=== PATIENT | female | born 1970 | race Caucasian/White ===

== ENCOUNTER 2018-03-20 08:28 | Emergency (ER) | payer BC ==
[2018-03-20 08:44] VITALS: BP 142/87
--- NOTE | 2018-03-20 10:21 | Emergency Department Report ---
Minor Respiratory - HPI Chief Complaint: Upper Respiratory Infection Stated Complaint: COUGH/PAIN Time Seen by Provider: 03/20/18 09:29 Duration: 2 Days Pain Location: Nose (congestion) Severity: moderate Minor Respiratory: Yes Rhinorrhea, Yes Able to Tolerate Fluids, Yes Cough, Yes Sick Contacts, No Sore Throat, No Ear Pain, No Hemoptysis, No Chest Pain, No Shortness of Breath, No Fever Other History: This is a 47-year-old female who presents with cough and congestion, and nausea for 1 week. Patient states cough and increased over the past 2 days her to call out of work. She has been taken and sinus medication with no improvement of symptoms. She is coughing so much causing nausea without vomiting. Patient denies past medical history. She is requesting doctor note so she was on the work tomorrow. Denies fever, nausea, vomiting, chest pain, wheezing, and body aches. ED Review of Systems ROS: Stated complaint: COUGH/PAIN Other details as noted in HPI Constitutional: denies: chills, fever ENT: congestion. denies: ear pain, throat pain, dental pain, hearing loss, epistaxis Respiratory: denies: cough, shortness of breath, wheezing Cardiovascular: denies: chest pain, palpitations, edema, syncope Gastrointestinal: nausea. denies: abdominal pain, vomiting, diarrhea Neurological: denies: headache, weakness, paresthesias Psychiatric: denies: anxiety, depression ED Past Medical Hx - Past Medical History Previous Medical History?: No - Surgical History Additional Surgical History: C SECTION - Social History Smoking Status: Never Smoker Substance Use Type: None - Medications Home Medications: Home Medications Medication Instructions Recorded Confirmed Last Taken Type ALBUTEROL Inhaler [ProAir HFA 1 puff IH Q4-6H PRN #1 inha 03/20/18 Unknown Rx Inhaler] Azithromycin [Zithromax Z-LONA] 250 mg PO DAILY #6 tablet 03/20/18 Unknown Rx Benzonatate [Tessalon Perles] 100 mg PO Q8HR PRN #20 capsule 03/20/18 Unknown Rx Fluticasone [Flonase] 1 spray NS QDAY #1 bottle 03/20/18 Unknown Rx Minor Respiratory Exam - Exam General: Vital signs noted. No distress. Alert and acting appropriately. HEENT: Yes Moist Mucous Membranes, Yes Rhinorrhea (turbinates mildly congested with clear discharge), No Pharyngeal Erythema, No Pharyngeal Exudates, No Conjuctival Injection, No Frontal Tenderness, No Maxillary Tenderness Ear: Neither TM Bulge, Neither TM Erythema, Neither EAC Pain, Neither EAC Discharge Neck: Yes Supple, No Adenopathy Lungs: Yes Good Air Exchange, Yes Cough, No Wheezes, No Ronchi, No Stridor, No Labored Respirations, No Retractions, No Use of Accessory Muscles, No Other Abnormal Lung Sounds Heart: Yes Regular, No Murmur Abdomen: Yes Normal Bowel Sounds, No Tenderness, No Peritoneal Signs Skin: No Rash, No Edema Neurologic: Alert and oriented, no deficits. Musculoskeletal: Unremarkable. ED Course Vital Signs 03/20/18 08:40 Temperature 98.2 F Pulse Rate 92 H Respiratory 18 Rate Blood Pressure 142/87 O2 Sat by Pulse 100 Oximetry ED Medical Decision Making - Medical Decision Making 47 y.o. female that presents with cough and congestion for 1 week. Patient examined by me and stable. No distress noted. Vitals normal. Physical findings susceptible of bronchitis. Start benzonatate, azithromycin, flonase, and albuterol. Discharged home stable. Return to work tomorrow. Follow up with Primary Care Provider in 2-3 days. Critical care attestation.: If time is entered above; I have spent that time in minutes in the direct care of this critically ill patient, excluding procedure time. ED Disposition Clinical Impression: Non-productive cough, Bronchitis Disposition: [id number] TO HOME OR SELFCARE Is pt being admited?: No Does the pt Need Aspirin: No Condition: Stable Instructions: Acute Bronchitis (ED) Additional Instructions: Increase fluid intake and rest. Wash hands frequently. F/U with Primary Care Provider. Return to ER if fever, SOB, or difficulty breathing after 48 hours of supportive care. Prescriptions: ALBUTEROL Inhaler [ProAir HFA Inhaler] 1 puff IH Q4-6H PRN #1 inha PRN Reason: Shortness Of Breath Azithromycin [Zithromax Z-LONA] 250 mg PO DAILY #6 tablet Benzonatate [Tessalon Perles] 100 mg PO Q8HR PRN #20 capsule PRN Reason: Cough Fluticasone [Flonase] 1 spray NS QDAY #1 bottle Referrals: [facility] [Outside] - 3-5 Days [facility] [Outside] - 3-5 Days [facility] [Outside] - 3-5 Days Forms: Work/School Release Form(ED) Time of Disposition: 10:18 Print Language: ITALIAN
== END 2018-03-20 10:45 | disposition home or self-care (01) ==
LOC: ED 08:28
DX: J40 Bronchitis, not specified as acute or chronic (principal)
CPT/HCPCS: 99282